=== PATIENT | female | born 1995 | race African-American/Black ===

== ENCOUNTER 2017-10-25 15:30 | Emergency (ER) | payer OTHER ==
[~2017-10-25] VITALS: Ht 180.3 cm; Wt 122.0 kg
--- NOTE | 2017-10-25 16:06 | DIAGNOSTIC IMAGING REPORT ---
R WRIST MIN 3 VIEWS ROUTINE CLINICAL HISTORY: R wrist pain trauma. Pain. COMPARISON: None. DISCUSSION: The bones and joint spaces appear intact. There is no evidence of fracture, dislocation or bony disease. There is no evidence for soft tissue swelling. IMPRESSION: Negative study. The above report was generated using voice recognition software. It may contain grammatical, syntax or spelling errors. Electronically signed by: Justin Tomas M.D. 10/25/2017 4:04 PM Dictated Date/Time: 10/25/2017 4:04 PM
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
== END 2017-10-25 16:40 | disposition home or self-care (01) ==
LOC: EDBD 15:30 → C.EDC 15:31
DX: S60.311A Abrasion of right thumb, initial encounter (principal); S60.211A Contusion of right wrist, initial encounter; V43.52XA Car driver injured in collision with other type car in traffic accident, initial encounter; Y92.488 Other paved roadways as the place of occurrence of the external cause; S00.511A Abrasion of lip, initial encounter